=== PATIENT | male | born 1935 | race Caucasian/White ===

== ENCOUNTER 2017-08-04 05:23 | Inpatient (IN) | payer MEDICARE, SELFPAY ==
[2017-08-04] VITALS (31 sets, daily range): BP systolic 115–158; BP diastolic 45–109; PULSE 38–178; RESP 13–32; TEMP 36.6–36.9; O2SAT 92–98; BMI 30.7; BMI 31.1; BMI 31.2
--- NOTE | 2017-08-04 05:29 | NURSING ---
RN CALLED FOR EKG, NO OLD EKG'S IN MUSE
--- NOTE | 2017-08-04 05:32 | RAD_ITS ---
STUDY: X-RAY CHEST REASON FOR EXAM: Male, 81 years old. Shortness of breath and dizziness TECHNIQUE: Single AP portable view of the chest. COMPARISON: None. FINDINGS: There are superimposed monitor leads. There is elevation of the left hemidiaphragm with compression of adjacent parenchyma, mild shift of trachea, heart and mediastinum to the right. Mild compression of the right basilar parenchyma. There is no demonstrated pleural abnormality. Normal size heart. Normal mediastinum and eloisa. Normal visualized pulmonary arteries. There is atherosclerotic calcification of the aortic arch with tortuosity. Obscured thoracic spine. Normal visualized ribs, clavicles, and shoulders. There is no demonstrated abnormality of the visualized soft tissue structures of the upper abdomen. RAD/Chest 1 View (Portable) IMPRESSION: Elevation of the right hemidiaphragm may cause shift to the right as outlined above. There is nonspecific compression of left greater than right basilar parenchyma. Due to lack of comparison, follow-up examination or comparison with films performed elsewhere recommended. Electronically Signed: Madelin Carey MD at 6:09 EDT , Service support ,
--- NOTE | 2017-08-04 05:32 | EKG12_ITS ---
Test Reason : SOB Blood Pressure : / mmHG Vent. Rate : 163 BPM Atrial Rate : 067 BPM P-R Int : 000 ms QRS Dur : 074 ms QT Int : 288 ms P-R-T Axes : 000 023 115 degrees QTc Int : 474 ms Atrial fibrillation Nonspecific ST and T wave abnormality Abnormal ECG Confirmed by KATRINA SOLOMON ([id number]), make up editor DEVAN CAMARILLO ([id number]) on 08/06/2017 2:35:11 PM Referred By: KAVITA Confirmed By:KATRINA SOLOMON
[2017-08-04] MEDS: 0.9% Normal Saline 1,000 ML 150 ML IV (05:39)
[2017-08-04] MEDS: dilTIAZem 25 MG/5 ML Vial 20 MG IV BOLUS ×2 (05:39→06:53)
[2017-08-04] MEDS: Aspirin 81 MG TAB.CHEW 324 MG PO (05:39)
--- NOTE | 2017-08-04 05:39 | ED.DCSUM_ITS ---
- ER Visit Summary Date of Service: 08/04/17 Chief Complaint: Heart racing History of Present Illness: The patient is a 81 M with no known medical history who presents for sudden onset of heart racing. Patient states he woke from sleep feeling like his heart was racing and he was on his head. He has associated chest discomfort and shortness of breath. He states he has had a chronic cough for months but denies any other symptoms. He has not seen a doctor in many years and has no diagnosed medical history. He is not on any medications currently. He denies alcohol and tobacco use. Physical Examination: Vital signs: afebrile, hypertensive, no hypoxia on room air General: well nourished, well developed, in no distress Skin: warm, dry, no rash, no pallor HEENT: normocephalic and atraumatic; PERRL, EOMI, moist mucous membranes Cardiovascular: Tachycardic irregularly irregular rhythm without murmurs, no peripheral edema, 2+ pulses all distal extremities Respiratory: No increased work of breathing, lungs are clear to auscultation bilaterally, no rales, rhonchi or wheezing Abdominal: Abdomen is soft, nontender with normoactive bowel sounds, no guarding or rebound, no masses MSK: Moves all extremities, no deformities, normal strength Neuro: Awake and alert, oriented ?4. No facial droop, sensation and motor function intact and symmetric Test Results: Abnormal Lab Results 08/04/17 08/04/17 08/04/17 05:27 05:27 05:27 WBC 7.0 RBC 4.79 Hgb 15.9 Hct 47.7 MCV 99.6 H MCH 33.2 H MCHC 33.3 RDW 13.2 RDW Differential 47.8 H Plt Count 229 MPV 9.5 Immature Gran % (Auto) 0.100 Neut % (Auto) 54.2 Lymph % (Auto) 32.6 [place] % (Auto) 10.3 H Eos % (Auto) 2.7 Baso % (Auto) 0.1 Absolute Neuts (auto) 3.8 Absolute Lymphs (auto) 2.27 Total Counted Not Reportable PT 12.5 INR 0.9 APTT 29.7 Sodium 141 Potassium 3.8 Chloride 106 Carbon Dioxide 28.0 Anion Gap 7 BUN 19 H Creatinine 1.25 Estim Creat Clear Calc 41.82 Est GFR (MDRD) Af Amer 71 Est GFR (MDRD) Non-Af 59 L BUN/Creatinine Ratio 15.2 Glucose 107 H Calcium 8.6 Troponin I < 0.02 TSH 7.80 H Emergency Department Course and Treatment: Patient presents in A. fib with RVR. EKG shows no ischemic changes. Given that patient is 81 years old and has not received any medical care in several years, it is unknown whether patient is acutely in A. fib with RVR from baseline normal sinus rhythm or whether he has had underlying atrial fibrillation, presenting today with RVR. Because of this, patient will not be cardioverted back into a sinus rhythm without cardiac evaluation first. He was given Cardizem for rate control, with good response after 1 bolus, and then followed by a Cardizem drip. Labs were performed to look for underlying cause of the acute A. fib with RVR. On the negative. No electrolyte derangements. TSH was elevated, with free T4 pending. Patient was discussed with Dr. Davis, who will consult on the patient. He was then discussed with Dr. Freitas for admission for further workup of new onset A. fib with RVR. Treatment Plan: [] Disposition: admit to PCU stepdown Impression: Atrial fibrillation with RVR This note was generated with [employer] dictation software. It may contain incorrect words, spelling, and punctuation that were not noted in review of the chart prior to signing ED Disposition - Plan for ED Patient: Chief Complaint: Chest Pain Referrals: Care Physician,No Primary [Primary Care Provider] -
[2017-08-04 05:46] LABS: International Normalized Ratio 0.9; Prothrombin Time (Protime)PT. 12.5 SECONDS (11.7-14.9)
[2017-08-04 05:47] LABS: Partial Thromboplast Time 29.7 Seconds (24.1-36.2)
[2017-08-04 05:57] LABS: Absolute Lymphocyte Count 2.27 X10^3/ul (0.83-4.51); Absolute Neutrophil Count 3.8 X10^3/uL (2.0-7.7); Basophil# 0.01 X10^3/uL; Basophil% 0.1 % (0-1); Eosinophil# 0.19 X10^3/uL; Eosinophils% 2.7 % (0-5); Hematocrit 47.7 % (40-54); Hemoglobin 15.9 g/dl (13.0-16.5); Lymphocyte # 2.27 X10^3/ul (4.0); Lymphocyte % 32.6 % (19-41); Mean Corp Hgb Conc 33.3 g/gl (32-36); Mean Corpuscular Hgb 33.2 pg (27.0-32.0); Mean Corpuscular Volume 99.6 fL (80-94); Mean Platelet Vol. 9.5 fl (6.2-12.0); Monocyte# 0.72 X10^3/uL; Monocyte% 10.3 % (0-10); Neutrophil # 3.76 X10^3/uL (2.7-7.7); Neutrophil % 54.2 % (47-70); Platelet Count 229 K/mm3 (150-450); RBC Distribution Width CV 13.2 % (11.6-14.6); RBC Distribution Width SD 47.8 fl (35.1-43.9); Red Blood Count 4.79 M/mm3 (4.6-6.2)
[2017-08-04 05:59] LABS: POSITIVE COUNT NO; POSITIVE DIFFERENTIAL NO; POSITIVE MORPHOLOGY NO
[2017-08-04 06:02] LABS: Anion Gap 7 (5-15); BUN 19 mg/dL (7-18); BUN/Creat Ratio 15.2 RATIO (10-20); Calcium,Total 8.6 mg/dL (8.5-10.1); Chloride 106 mmol/L (98-107); Creatinine, Serum 1.25 mg/dL (0.70-1.30); EST Glomerular Filtration Rate 59 mL/min (>60); Est Glom Filt Rate - Afr Amer 71 mL/min (>60); Estimated Creatinine Clearance 41.82 ml/min; Glucose 107 mg/dL (74-106); Potassium 3.8 mmol/L (3.5-5.1); Sodium Level 141 mmol/L (136-145)
--- NOTE | 2017-08-04 06:32 | PCM.HP.STD ---
Problem List (1) Atrial fibrillation with RVR Status: Acute History of Present Illness Date of Admission: 08/04/17 Chief Complaint: heart racing The patient is a 81 year old male patient who has not seen a physician in quite awhile presents to the ER after waking up at 2:00 with his heart racing. He felt palpitations and he was abnormally fatigued. He denies chest pain to me currently but does feel tired. EKG shows atrial fibrillation with RVR initial rate was 170s. After Cardizem bolus his heart rate was around 120. A Cardizem drip was started and patient admitted for further cardiac workup. Past Medical History Allergies No Known Allergies Allergy (Verified 08/04/17 05:25) Home Medications: Ambulatory Orders Medication Instructions Recorded NK [NK] 08/04/17 Surgical History: no surgical history Smoking Status: Never smoker - *Family History Maternal History Items: No pertinent history Review of Systems Constitutional: Reports: Weakness. Denies: Chills, Fever, Weight Change HEENT: Denies: Head Aches, Sinus Congestion, Sinus Drainage Cardiovascular: Reports: Palpitations. Denies: Chest Pain Respiratory: Reports: Shortness of breath upon exertion. Denies: Cough, Shortness of breath at rest, Sputum production Gastrointestinal: Denies: Abdominal Pain, Nausea, Vomiting Genitourinary: Denies: Dysuria Musculoskeletal: Denies: Joint Pain, Joint Tenderness Skin: Denies: Rash, Wounds Neurological: Denies: Numbness, Tingling, Focal weakness Psychiatric: Denies: Anxiety, Depression, Homicidal Ideations, Suicidal Ideations Hematologic/ Lymphatic: Denies: Easy Bruising, Easy Bleeding VTE Information - Inpt Only VTE Present on Admission: No VTE Mechan Device Prophylaxis: None VTE Pharm Prophylaxis ordered?: Yes Patient Problems: Active and Suspected Problems Fatigue due to excessive exertion (Acute) Atrial fibrillation with RVR (Acute) - Physical Exam General: Alert, Oriented x3, Cooperative HEENT: Atraumatic, Normocephalic Neck: Supple Lungs: Clear to auscultation, Normal air movement Cardiovascular: Normal S1, Normal S2, No murmurs, Irregular Rate, Tachycardic Abdomen: Bowel Sounds Present, Soft, Non Tender Extremities: No edema Skin: No rashes Musculoskeletal: No Tenderness to Palpation of Joints or Extremities Neurological: Neuro grossly intact Psych/Mental Status: Normal Affect, Appropriate Vital Signs Temp Pulse Resp BP Pulse Ox 97.8 F 117 H 22 H 129/72 H 97 08/04/17 05:24 08/04/17 06:20 08/04/17 06:20 08/04/17 06:20 08/04/17 06:20 Oxygen Flow Rate (L/min) 2 Oxygen Delivery Method Nasal Cannula Weight: 190 lb Body Mass Index (BMI) 30.7 Laboratory Tests Past 24 Hrs 08/04/17 08/04/17 08/04/17 05:27 05:27 05:27 WBC 7.0 RBC 4.79 Hgb 15.9 Hct 47.7 MCV 99.6 H MCH 33.2 H MCHC 33.3 RDW 13.2 RDW Differential 47.8 H Plt Count 229 MPV 9.5 Immature Gran % (Auto) 0.100 Neut % (Auto) 54.2 Lymph % (Auto) 32.6 [place] % (Auto) 10.3 H Eos % (Auto) 2.7 Baso % (Auto) 0.1 Absolute Neuts (auto) 3.8 Absolute Lymphs (auto) 2.27 Total Counted Not Reportable PT 12.5 INR 0.9 APTT 29.7 Sodium 141 Potassium 3.8 Chloride 106 Carbon Dioxide 28.0 Anion Gap 7 BUN 19 H Creatinine 1.25 Estim Creat Clear Calc 41.82 Est GFR (MDRD) Af Amer 71 Est GFR (MDRD) Non-Af 59 L BUN/Creatinine Ratio 15.2 Glucose 107 H Calcium 8.6 Troponin I < 0.02 TSH 7.80 H Free T4 08/04/17 05:27 WBC RBC Hgb Hct MCV MCH MCHC RDW RDW Differential Plt Count MPV Immature Gran % (Auto) Neut % (Auto) Lymph % (Auto) [place] % (Auto) Eos % (Auto) Baso % (Auto) Absolute Neuts (auto) Absolute Lymphs (auto) Total Counted PT INR APTT Sodium Potassium Chloride Carbon Dioxide Anion Gap BUN Creatinine Estim Creat Clear Calc Est GFR (MDRD) Af Amer Est GFR (MDRD) Non-Af BUN/Creatinine Ratio Glucose Calcium Troponin I TSH Free T4 Pending Assessment/Plan Active and Suspected Problems Fatigue due to excessive exertion (Acute) Atrial fibrillation with RVR (Acute) Admit to PCU - consult Dr. Susan lal - NPO for now - Lovenox 1mg / kg sc q 12hrs until other form of anticoagulation determined - to address hypothyroid state perhaps low dose synthroid replacement or repeat labs in a few weeks Code Visit Inpatient E&M: 41917 Init Hosp L3
[2017-08-04 06:51] LABS: T4 Free Direct 0.91 ng/dL (0.76-1.46)
--- NOTE | 2017-08-04 06:56 | ED.RN ---
DR. MONTANO IN TO SEE PATIENT VERBAL ORDER GIVEN TO INCREASE CARDIZEM DOES TO 10 MG AND GIVE 20 MG BOLUS AT THIS TIME
--- NOTE | 2017-08-04 07:19 | EKG12_ITS ---
Test Reason : REPEAT EKG Blood Pressure : / mmHG Vent. Rate : 107 BPM Atrial Rate : 085 BPM P-R Int : 000 ms QRS Dur : 076 ms QT Int : 326 ms P-R-T Axes : 000 020 046 degrees QTc Int : 435 ms Atrial fibrillation with premature ventricular or aberrantly conducted complexes Abnormal ECG Confirmed by KATRINA SOLOMON ([id number]), news videotape editor DEVAN CAMARILLO ([id number]) on 08/06/2017 2:35:25 PM Referred By: KAVITA Confirmed By:KATRINA SOLOMON
--- NOTE | 2017-08-04 07:44 | PCM.CONS.C ---
Reason for Consult Date of Consultation: 08/04/17 Reason for Consultation: Atrial fibrillation. History of Present Illness: The patient is a 81 year old M with no previous cardiac history who has been fairly active and said that he woke at about 2 AM complaining of palpitations and shortness of breath. He presented to the emergency room was noted to be in atrial for ablation with rapid ventricular response rate he was administered intravenous Cardizem with some slowing down of his heart rate and I was called for further evaluation and management. He denies any chest pain he has had some shortness of breath is not had any palpitations until last night no pedal edema no paroxysmal nocturnal dyspnea. He is on no medications and has not seen a physician in years. He however remains very active and walks all around [place]. At this particular time he remained stable. [] Past Medical History Allergies/Adverse Reactions: Allergies No Known Allergies Allergy (Verified 08/04/17 05:25) Home Medications: Ambulatory Orders Medication Instructions Recorded NK [NK] 08/04/17 Surgical History: no surgical history - *Family History Maternal History Items: No pertinent history Smoking Status: Never smoker Alcohol: None Drugs: None Review of Systems - Review of Systems General: Denies: Fever, Night Sweats, Fatigue Cardiovascular: Reports: Shortness of Breath with Exertion, Palpitations. Denies: Chest Discomfort, Shortness of Breath, Orthopnea, PND, Peripheral Edema, Lightheadedness, Dizziness, Near Syncope, Syncope Respiratory: Denies: Cough, Sputum Production, Hemoptysis Gastrointestinal: Denies: Hematemesis, Hematochezia, Melena Genitourinary: Denies: Dysuria, Hematuria Skin: Denies: Rash Subjectve: Pleasant gentleman in no apparent distress. Objective: Vital Signs Temp Pulse Resp BP Pulse Ox 98.0 F 87 18 140/69 H 98 08/04/17 07:30 08/04/17 07:30 08/04/17 07:30 08/04/17 07:30 08/04/17 07:30 Oxygen Flow Rate (L/min) 2 Oxygen Delivery Method Nasal Cannula Weight: 193 lb 1.999 oz Body Mass Index (BMI) 31.1 General: Awake, Alert, Oriented x 3 HEENT: PERRL, EOMI, Sclera Non Icteric Neck: Supple, Good ROM, No Lymph Node Enlargement Lungs: Clear to auscultation Cardiovascular: Irregular Rhythm, Normal S1, Normal S2, No Murmurs, No Rubs, No Gallops Vascular: No Carotid Bruits, Normal Femoral Pulses, Normal Radial Pulses, Normal Dorsalis Pedal Pulse, Normal Posterior Tibial Pulses Abdomen: Bowel Sounds Present, Soft, Non Tender, No HSM, No Organomegaly Extremities: No Cyanosis, No Clubbing, No edema Neurological: No Focal Motor or Sensory Deficit Rhythm: EKG: Atrial fibrillation with rapid ventricular response rate of 140 bpm ECHO: Pending Assessment/Plan 1. Atrial fibrillation Patient presents with recent onset atrial fibrillation with rapid ventricular response rate. The etiology is unclear he however does have a history of hypertension though it is untreated. My recommendation at this time will be to slow his ventricular response rate with intravenous Cardizem and subsequently oral metoprolol obtain an echocardiogram to assess his left ventricular function and obtain serial cardiac enzymes. Depending on the results of the above as well as his response to therapy further recommendations will be made. 2. Hypertension His blood pressure appears to be under suboptimal control. With the addition of the beta-chantell hopefully this should improve his symptoms. Thank you for allowing me to participate in the care of your patient. Please don't hesitate to call if any issues arise
[2017-08-04] MEDS: Metoprolol Tartrate 50 MG Tablet PO ×2 (09:44→23:00)
--- NOTE | 2017-08-04 11:36 | CASEMGMT ---
Addendum entered by Izabella Amaya 08/04/17 11:39: Pt provided with list of local PCP's at this time. Pt voices gratitude. Brandi DERAS CM Original Note: Face to Face with patient for initial transition planning/care coordination assessment. BRAEDEN BRADLEY introduced self and role at [facility], pt voices understanding and consents to assessment at this time. Pt is lying in bed in no distress at this time. Pt is A/O x4 at this time and answers all questions appropriately at this time. Care providers, pharmacy, and demographics verified. See attached link. Pt voices no further concerns/needs at this time. Advised pt to ask for CM if any further questions/concerns/needs arise, voices understanding. CM to follow for any further concerns/needs. PLAN: Home Brandi DERAS CM
--- NOTE | 2017-08-04 12:36 | PCM.PROGNOTE ---
<oPrsha Duckworth - Last Filed: 08/04/17 12:42> Patient Problems: Active and Suspected Problems Fatigue due to excessive exertion (Acute) Atrial fibrillation with RVR (Acute) Subjective: Patient seen and examined. Denies further palpitations. Denies chest pain, shortness of breath. Denies other complaints. - Physical Exam General: Alert, Oriented x3, Cooperative, No apparent distress HEENT: Atraumatic, PERRLA, EOMI, Normocephalic Neck: Supple, No JVD, Negative Carotid Bruits Lungs: Clear to auscultation, Normal air movement Cardiovascular: Normal S1, Normal S2, No murmurs, - - A. fib, rate controlled. Abdomen: Bowel Sounds Present, Soft, Non Tender, Non-Distended Extremities: No clubbing, No cyanosis, No edema, Capillary Refill Less than 3 Seconds Skin: No rashes, No breakdown Musculoskeletal: No Tenderness to Palpation of Joints or Extremities Neurological: Cranial nerves II-XII grossly intact, Neuro grossly intact Psych/Mental Status: Normal Affect, Appropriate Vital Signs Temp Pulse Resp BP Pulse Ox 98.0 F 60 26 H 126/68 H 97 08/04/17 11:30 08/04/17 11:30 08/04/17 11:30 08/04/17 11:30 08/04/17 11:30 Oxygen Flow Rate (L/min) 2 Oxygen Delivery Method Room Air Weight: 87.6 kg Body Mass Index (BMI) 31.1 Intake and Output for Last 24 Hours 08/02/17 08/03/17 08/04/17 23:59 23:59 23:59 Intake Total 600 / 600 Output Total 250 / 250 Balance 350 / 350 Laboratory Tests Past 24 Hrs 08/04/17 09:05 Troponin I < 0.02 Medical Necessity - Tobacco Use Smoking Status: Never smoker Assessment/Plan Active and Suspected Problems Fatigue due to excessive exertion (Acute) Atrial fibrillation with RVR (Acute) 1. New onset atrial fibrillation with RVR-remains in atrial fibrillation. Rate controlled. Cardiology consulted. Patient is on Cardizem drip and metoprolol 50 mg twice daily. Troponin negative ?2. Echocardiogram pending. Continue weight-based Lovenox. 2. Hypertension-stable, continue current regimen. 3. Hypothyroidism-TSH 7.8. Free T4 0.91. Recommend further management as outpatient. DVT prophylaxis-Lovenox subcu. This patient was seen by JANEY Callaway under the supervision of Dr. Castro. <Sherry Castro - Last Filed: 08/04/17 18:03> - Physical Exam Vital Signs Temp Pulse Resp BP Pulse Ox 98.5 F 38 L 20 H 132/72 H 94 08/04/17 15:09 08/04/17 15:56 08/04/17 15:09 08/04/17 15:09 08/04/17 15:09 Oxygen Flow Rate (L/min) 2 Oxygen Delivery Method Nasal Cannula Weight: 87.6 kg Body Mass Index (BMI) 31.1 Intake and Output for Last 24 Hours 08/02/17 08/03/17 08/04/17 23:59 23:59 23:59 Intake Total 940 / 940 Output Total 550 / 550 Balance 390 / 390 Laboratory Tests Past 24 Hrs 08/04/17 08/04/17 09:05 13:00 Troponin I < 0.02 0.03 Assessment/Plan Patient was seen and examined dependently of nurse practitioner Porsha Duckworth, I agree with her interval history, physical exam and assessment and plan as documented above. Patient denies any palpitations, dizziness or shortness of breath at the time of being examined. He is rate controlled on telemetry. Off Cardizem drip, on metoprolol, cardiology consulted, will await recommendations. 2D echo report is pending CHADS2 score of at least 2. Vitals reviewed, meds reviewed, labs reviewed. We will continue on metoprolol, Lovenox twice daily. Code Visit Inpatient E&M: [id number] [facility] Hosp L2
--- NOTE | 2017-08-04 16:15 | EKG12_ITS ---
Test Reason : Blood Pressure : / mmHG Vent. Rate : 056 BPM Atrial Rate : 056 BPM P-R Int : 158 ms QRS Dur : 084 ms QT Int : 438 ms P-R-T Axes : 052 027 063 degrees QTc Int : 422 ms Sinus bradycardia Otherwise normal ECG Confirmed by LORRAINE BARAKAT, ZAMZAM ([id number]), food expeditor DEVAN CAMARILLO ([id number]) on 08/07/2017 1:33:23 PM Referred By: ROBBIN Confirmed By:ZAMZAM PETERS MD
[2017-08-04] MEDS: Enoxaparin 100 MG/ML Syringe 90 MG SC (17:45)
[2017-08-05 03:00] VITALS: BP 108/62; PULSE 58; RESP 16; TEMP 36.9; O2SAT 99
[2017-08-05 03:04] VITALS: PULSE 61
[2017-08-05] MEDS: Enoxaparin 100 MG/ML Syringe 90 MG SC (05:44)
--- NOTE | 2017-08-05 05:55 | ECHOD_ITS ---
Reason For Study: AFIB Procedure This was a 2D Doppler, Color Flow transthoracic echocardiogram. Exam performed portable in patient room. Left Ventricle Normal LV size. Mild concentric left ventricular hypertrophy. The estimated ejection fraction is 47 %. Mild global left ventricular systolic dysfunction. Transmitral diastolic flow velocities suggest mild (stage 1) diastolic dysfunction (reversed pattern). There is mild global hypokinesis of the left ventricle. Right Ventricle Normal RV size. Normal systolic function. Atria Normal left atrium. Normal right atrium. Intact atrial septum. Mitral Valve Normal mitral valve. Mild (1+) eccentric mitral valve insufficiency. Tricuspid Valve Normal tricuspid valve. Mild (1+) tricuspid valve insufficiency. Pulmonary artery systolic pressure is 33 mmHg. Aortic Valve Trisinus/trileaflet aortic valve. Mild (1+) eccentric aortic valve insufficiency. Pulmonic Valve The pulmonic valve is not well visualized. Great Vessels Normal aortic root. The pulmonary artery is normal size. Normal inferior vena cava. Pericardium/Pleural No pericardial effusion. Medication Performed a rapid injection of agitated mix of 9 cc saline and 1cc air to assess for atrial septal defect. MMode/2D Measurements & Calculations LVIDd: 4.4 cm IVSd: 1.2 cm Ao root diam: 3.7 cm LVIDs: 3.2 cm LVPWd: 1.4 cm RVDd: 3.3 cm FS: 27.3 % LAV(MOD-bp): 64.4 ml EDV(MOD-sp4): 77.7 ml SV(MOD-sp4): 46.2 ml LAV(MOD-bp) Indexed: 32.7 ml/m2 ESV(MOD-sp4): 31.4 ml LAV(MOD-sp2): 73.8 ml EF(MOD-sp4): 59.5 % LAV(MOD-sp4): 44.4 ml LA A4 area: 17.0 cm2 RA A4 area: 14.5 cm2 Doppler Measurements & Calculations MV E max christopher: 65.0 cm/sec Lat Peak E' Christopher: 7.9 cm/sec Med Peak E' Christopher: 7.0 cm/sec MV A max christopher: 79.3 cm/sec E/E' lat: 8.2 E/E' med: 9.3 MV E/A: 0.82 Ao V2 max: 133.9 cm/sec AI max christopher: 354.1 cm/sec LV V1 max: 84.7 cm/sec Ao max P.2 mmHg AI max P.1 mmHg LV V1 max P.9 mmHg AI dec slope: 186.3 cm/sec2 AI P1/2t: 556.8 msec PA V2 max: 67.2 cm/sec TR max christopher: 265.6 cm/sec TR max P.2 mmHg Interpretation Summary Normal LV size. Mild concentric left ventricular hypertrophy. The estimated ejection fraction is 47 %. Mild global left ventricular systolic dysfunction. Transmitral diastolic flow velocities suggest mild (stage 1) diastolic dysfunction (reversed pattern). Ordering Physician: Jaya Freitas Referring Physician: JAMESON MONTANO Performed By: Rosa Hernandez RDCS
[2017-08-05 06:13] LABS: Absolute Lymphocyte Count 1.23 X10^3/ul (0.83-4.51); Absolute Neutrophil Count 3.4 X10^3/uL (2.0-7.7); Basophil# 0.01 X10^3/uL; Basophil% 0.2 % (0-1); Eosinophil# 0.16 X10^3/uL; Hematocrit 39.7 % (40-54); Hemoglobin 13.1 g/dl (13.0-16.5); Lymphocyte # 1.23 X10^3/ul (4.0); Mean Corpuscular Hgb 32.8 pg (27.0-32.0); Mean Corpuscular Volume 99.3 fL (80-94); Mean Platelet Vol. 9.4 fl (6.2-12.0); Monocyte# 0.57 X10^3/uL; Monocyte% 10.7 % (0-10); Neutrophil # 3.36 X10^3/uL (2.7-7.7); Neutrophil % 62.9 % (47-70); Platelet Count 177 K/mm3 (150-450); RBC Distribution Width CV 13.3 % (11.6-14.6); RBC Distribution Width SD 48.4 fl (35.1-43.9); White Blood Count 5.3 K/mm3 (4.4-11.0)
[2017-08-05 06:27] LABS: POSITIVE COUNT NO; POSITIVE DIFFERENTIAL NO; POSITIVE MORPHOLOGY NO
[2017-08-05 06:31] LABS: ALB/GLOB Ratio 1.1 RATIO (0.9-2.4); AST(SGOT) 15 U/L (15-37); Alanine Aminotransfer ALT/SGPT 15 U/L (16-61); Albumin, Serum 3.1 g/dL (3.2-5.0); Alkaline Phosphatase 54 U/L (45-117); Anion Gap 7 (5-15); BUN 21 mg/dL (7-18); BUN/Creat Ratio 18.8 RATIO (10-20); Calcium,Total 7.8 mg/dL (8.5-10.1); Chloride 110 mmol/L (98-107); Cholesterol 166 mg/dL (200); Creatinine, Serum 1.12 mg/dL (0.70-1.30); EST Glomerular Filtration Rate 67 mL/min (>60); Est Glom Filt Rate - Afr Amer 81 mL/min (>60); Estimated Creatinine Clearance 46.68 ml/min; Globulin 2.9 g/dL (2.2-4.2); Glucose 77 mg/dL (74-106); High Density Lipoprotein 32 mg/dL; Potassium 4.3 mmol/L (3.5-5.1); Sodium Level 144 mmol/L (136-145); Triglycerides 157 mg/dL; Very Low Density Lipoprotein 31 mg/dL (5-40)
[2017-08-05 06:54] VITALS: PULSE 56
--- NOTE | 2017-08-05 07:29 | PN.CARD_ITS ---
Subjectve: The patient was seen and evaluated and appears to be doing well. Has no complaints. He has converted to sinus rhythm and feels better. Objective: Vital Signs Temp Pulse Resp BP Pulse Ox 98.5 F 56 L 16 108/62 99 08/05/17 03:00 08/05/17 06:54 08/05/17 03:00 08/05/17 03:00 08/05/17 03:00 Oxygen Flow Rate (L/min) 2 Oxygen Delivery Method Room Air Weight: 193 lb 1.999 oz Body Mass Index (BMI) 31.1 Intake and Output for Last 24 Hours 08/03/17 08/04/17 08/05/17 23:59 23:59 23:59 Intake Total 940 / 940 Output Total 550 / 550 Balance 390 / 390 General: Awake, Alert, Oriented x 3 HEENT: PERRL, EOMI, Sclera Non Icteric Neck: Supple, Good ROM, No Lymph Node Enlargement Lungs: Clear to auscultation Cardiovascular: Regular Rhythm, Normal S1, Normal S2, No Murmurs, No Rubs, No Gallops Vascular: No Carotid Bruits, Normal Femoral Pulses, Normal Radial Pulses, Normal Dorsalis Pedal Pulse, Normal Posterior Tibial Pulses Abdomen: Bowel Sounds Present, Soft, Non Tender, No HSM, No Organomegaly Extremities: No Cyanosis, No Clubbing, No edema Neurological: No Focal Motor or Sensory Deficit 08/04/17 09:05: Troponin I < 0.02 08/04/17 13:00: Troponin I 0.03 08/04/17 19:33: Troponin I 0.03 08/05/17 05:35: Sodium 144, Potassium 4.3, Chloride 110 H, Carbon Dioxide 27.0, Anion Gap 7, BUN 21 H, Creatinine 1.12, Est GFR (MDRD) Af Amer 81, Est GFR (MDRD ) Non-Af 67, BUN/Creatinine Ratio 18.8, Glucose 77, Calcium 7.8 L, Total Bilirubin 0.50, Triglycerides 157, Cholesterol 166, LDL Cholesterol 103, VLDL Cholesterol 31, HDL Cholesterol 32 L 08/05/17 05:35: WBC 5.3, RBC 4.00 L, Hgb 13.1, Hct 39.7 L, MCV 99.3 H, MCH 32.8 H, MCHC 33.0, RDW 13.3, RDW Differential 48.4 H, Plt Count 177, MPV 9.4, Immature Gran % (Auto) 0.200, Neut % (Auto) 62.9, Lymph % (Auto) 23.0, [place] % ( Auto) 10.7 H, Eos % (Auto) 3.0, Baso % (Auto) 0.2, Absolute Neuts (auto) 3.4, Total Counted Not Reportable Rhythm: EKG: ECHO: Stress Test: Cardiac Cath: PCI: CT Surgery: Holter monitor: EPS: PPM: CXR: Chest CT Scan: Medical Necessity - Tobacco Use Smoking Status: Never smoker Assessment/Plan 1. Atrial fibrillation Patient presents with recent onset atrial fibrillation with rapid ventricular response rate. The etiology is unclear he however does have a history of hypertension though it is untreated. He was treated with intravenous Cardizem and beta-chantell and has since converted back to sinus rhythm. His echocardiogram which is ongoing demonstrates overall preserved left ventricular systolic function with mild aortic regurgitation. Formal reading pending. At this time my recommendation would be for him to continue the beta-chantell with metoprolol 50 mg twice a day as well as anticoagulation with Eliquis 5 mg twice a day and be subsequently discharged and followed by up as an outpatient. 2. Hypertension His blood pressure appears to be under better control. With the addition of the beta-chantell hopefully this should improve his symptoms. Thank you for allowing me to participate in the care of your patient. Please don't hesitate to call if any issues arise
[2017-08-05 08:29] LABS: BNP,B-Type NATRIURETIC PEPTIDE 129.5 pg/mL (0-100)
[2017-08-05 09:00] VITALS: BP 124/66; PULSE 61; RESP 18; TEMP 36.8; O2SAT 95
[2017-08-05 09:01] VITALS: PULSE 61
[2017-08-05] MEDS: Metoprolol Tartrate 50 MG Tablet PO (09:01)
[2017-08-05] MEDS: APIXABAN 5 MG TABLET PO (09:01)
[2017-08-05 09:11] VITALS: O2SAT 95
--- NOTE | 2017-08-05 11:07 | CASEMGMT ---
Pt states that he does not think that he has prescription coverage. Call to [facility] and July,, states that pt has no cards on file and she ran his name in the system for any other coverage and she states that nothing comes up. Marian LITTLE aware. Toois to be e-scribed to [facility] retail pharm for one time assist and then pt to be provided with prescription assist info by Clarence GLEZ. Pt to be updated on all. Brandi DERAS CM
--- NOTE | 2017-08-05 11:21 | PCM.DC ---
- Discharge Diagnoses Current Active Problems: Current Active and Chronic Problems Fatigue due to excessive exertion (Acute) Atrial fibrillation with RVR (Acute) You will use the following diet at home:: Cardiac Discharge Activity: Return to Normal Activity Call your doctor if you observe: Shortness of breath, Dizziness, Fainting spells, Chest pain, Increased palpitations (irregular heartbeat), Calf discomfort Allergies/Adverse Reactions: Allergies No Known Allergies Allergy (Verified 08/04/17 05:25) Medications to take at Discharge Apixaban [Eliquis] 5 mg PO BID #60 tab 08/05/17 Metoprolol Tartrate [Lopressor (beta chantell)] 50 mg PO BID #60 tab 08/05/17 The following prescriptions were given: Apixaban [Eliquis] 5 mg PO BID #60 tab Metoprolol Tartrate [Lopressor (beta chantell)] 50 mg PO BID #60 tab Primary Care Physician: Care Physician,No Primary [Primary Care Provider] - Please follow up with your Primary Care Physician in: 1 Week Please Follow Up With: Jameson Davis MD When: 1-2 Weeks Please Follow Up With: Wally Cadena MD - Reinforcer When: 1 Week or as needed Proposed Discharge Date: 08/05/17
--- NOTE | 2017-08-05 11:25 | DCINST_ITS ---
- Discharge Diagnoses Current Active Problems: Current Active and Chronic Problems Fatigue due to excessive exertion (Acute) Atrial fibrillation with RVR (Acute) You will use the following diet at home:: Cardiac Discharge Activity: Return to Normal Activity Call your doctor if you observe: Shortness of breath, Dizziness, Fainting spells , Chest pain, Increased palpitations (irregular heartbeat), Calf discomfort Allergies/Adverse Reactions: Allergies No Known Allergies Allergy (Verified 08/04/17 05:25) Medications to take at Discharge Apixaban [Eliquis] 5 mg PO BID #60 tab 08/05/17 Metoprolol Tartrate [Lopressor (beta chantell)] 50 mg PO BID #60 tab 08/05/17 The following prescriptions were given: Apixaban [Eliquis] 5 mg PO BID #60 tab Metoprolol Tartrate [Lopressor (beta chantell)] 50 mg PO BID #60 tab Primary Care Physician: Care Physician,No Primary [Primary Care Provider] - Please follow up with your Primary Care Physician in: 1 Week Please Follow Up With: Jameson Davis MD When: 1-2 Weeks Please Follow Up With: Wally Cadena MD - Dryland Farmer When: 1 Week or as needed Proposed Discharge Date: 08/05/17
--- NOTE | 2017-08-05 11:27 | PCM.DC.SUM ---
Discharge Date and Diagnosis Date of Admission: 08/04/17 Date of Discharge: 08/05/17 - Primary Discharge Diagnosis Active and Suspected Problems 1. Acute atrial fibrillation with RVR - Secondary Discharge Diagnosis Hypertension Hospital Course and Treatment Imaging Results: Diagnostic Data Chest X-Ray 08/04/17 05:32 IMPRESSION: Elevation of the right hemidiaphragm may cause shift to the right as outlined above. There is nonspecific compression of left greater than right basilar parenchyma. Due to lack of comparison, follow-up examination or comparison with films performed elsewhere recommended. Electronically Signed: Madelin Carey MD at 6:09 EDT , Service support , Dr. Davis- Cardiology Operations: None Procedures: 2-D Echocardiogram Summary of Care Provided: The patient is a 81 year old M admitted 08/04/17 due to heart racing. He was found to be in atrial fibrillation with RVR. No previous diagnosis. No prior medical history. 1. New onset atrial fibrillation with RVR-previously on Cardizem drip and converted to sinus rhythm. Dr. Davis consulted. Troponin negative ?4. Patient will continue metoprolol 50 mg twice daily and Eliquis 5 mg twice daily. Echocardiogram showed an ejection fraction of 47%, mild global left ventricular systolic dysfunction, stage I diastolic dysfunction. 2. Hypertension-stable, continue current regimen. 3. Hypothyroidism-TSH 7.8. Free T4 0.91. Recommend further management as outpatient. General: Alert, Oriented x3, Cooperative, No apparent distress HEENT: Atraumatic, PERRLA, EOMI, Normocephalic Neck: Supple, No JVD, Negative Carotid Bruits Lungs: Clear to auscultation, Normal air movement Cardiovascular: Normal rate, normal rhythm normal S1, Normal S2, No murmurs Abdomen: Bowel Sounds Present, Soft, Non Tender, Non-Distended Extremities: No clubbing, No cyanosis, No edema, Capillary Refill Less than 3 Seconds Skin: No rashes, No breakdown Musculoskeletal: No Tenderness to Palpation of Joints or Extremities Neurological: Cranial nerves II-XII grossly intact, Neuro grossly intact Psych/Mental Status: Normal Affect, Appropriate Patient seen and examined prior to discharge. Physical assessment as noted above. Patient stable for discharge home with further follow-up with primary care physician and cardiology in 1-2 weeks. This patient was seen by JANEY Callaway under the supervision of Dr. Saleh. Discharge Activity: Return to Normal Activity Call your doctor if you observe: Shortness of breath, Dizziness, Fainting spells, Chest pain, Increased palpitations (irregular heartbeat), Calf discomfort Home Medications: Medications to take at Discharge Apixaban [Eliquis] 5 mg PO BID #60 tab 08/05/17 Metoprolol Tartrate [Lopressor (beta chantell)] 50 mg PO BID #60 tab 08/05/17 Following Prescrptions Were Given to Patient: Apixaban [Eliquis] 5 mg PO BID #60 tab Metoprolol Tartrate [Lopressor (beta chantell)] 50 mg PO BID #60 tab Primary Care Physician: Care Physician,No Primary [Primary Care Provider] - Please follow up with your Primary Care Physician in: 1 Week Please Follow Up With: Jameson Davis MD When: 1-2 Weeks Please Follow Up With: Wally Cadena MD - Supervisor Film Processing When: 1 Week or as needed Medical Necessity - Tobacco Use Smoking Status: Never smoker Meaningful Use Info Meaningful Use Diagnoses (Choose all that apply): None applicable
--- NOTE | 2017-08-05 11:34 | DS.PCM_ITS ---
Discharge Date and Diagnosis Date of Admission: 08/04/17 Date of Discharge: 08/05/17 - Primary Discharge Diagnosis Active and Suspected Problems 1. Acute atrial fibrillation with RVR - Secondary Discharge Diagnosis Hypertension Hospital Course and Treatment Imaging Results: Diagnostic Data Chest X-Ray 08/04/17 05:32 IMPRESSION: Elevation of the right hemidiaphragm may cause shift to the right as outlined above. There is nonspecific compression of left greater than right basilar parenchyma. Due to lack of comparison, follow-up examination or comparison with films performed elsewhere recommended. Electronically Signed: Madelin Carey MD at 6:09 EDT , Service support , Dr. Davis- Cardiology Operations: None Procedures: 2-D Echocardiogram Summary of Care Provided: The patient is a 81 year old M admitted 08/04/17 due to heart racing. He was found to be in atrial fibrillation with RVR. No previous diagnosis. No prior medical history. 1. New onset atrial fibrillation with RVR-previously on Cardizem drip and converted to sinus rhythm. Dr. Davis consulted. Troponin negative ?4. Patient will continue metoprolol 50 mg twice daily and Eliquis 5 mg twice daily. Echocardiogram showed an ejection fraction of 47%, mild global left ventricular systolic dysfunction, stage I diastolic dysfunction. 2. Hypertension-stable, continue current regimen. 3. Hypothyroidism-TSH 7.8. Free T4 0.91. Recommend further management as outpatient. General: Alert, Oriented x3, Cooperative, No apparent distress HEENT: Atraumatic, PERRLA, EOMI, Normocephalic Neck: Supple, No JVD, Negative Carotid Bruits Lungs: Clear to auscultation, Normal air movement Cardiovascular: Normal rate, normal rhythm normal S1, Normal S2, No murmurs Abdomen: Bowel Sounds Present, Soft, Non Tender, Non-Distended Extremities: No clubbing, No cyanosis, No edema, Capillary Refill Less than 3 Seconds Skin: No rashes, No breakdown Musculoskeletal: No Tenderness to Palpation of Joints or Extremities Neurological: Cranial nerves II-XII grossly intact, Neuro grossly intact Psych/Mental Status: Normal Affect, Appropriate Patient seen and examined prior to discharge. Physical assessment as noted above. Patient stable for discharge home with further follow-up with primary care physician and cardiology in 1-2 weeks. This patient was seen by JANEY Callaway under the supervision of Dr. Saleh. Discharge Activity: Return to Normal Activity Call your doctor if you observe: Shortness of breath, Dizziness, Fainting spells , Chest pain, Increased palpitations (irregular heartbeat), Calf discomfort Home Medications: Medications to take at Discharge Apixaban [Eliquis] 5 mg PO BID #60 tab 08/05/17 Metoprolol Tartrate [Lopressor (beta chantell)] 50 mg PO BID #60 tab 08/05/17 Following Prescrptions Were Given to Patient: Apixaban [Eliquis] 5 mg PO BID #60 tab Metoprolol Tartrate [Lopressor (beta chantell)] 50 mg PO BID #60 tab Primary Care Physician: Care Physician,No Primary [Primary Care Provider] - Please follow up with your Primary Care Physician in: 1 Week Please Follow Up With: Jameson Davis MD When: 1-2 Weeks Please Follow Up With: Wally Cadena MD - Test Case Developer When: 1 Week or as needed Medical Necessity - Tobacco Use Smoking Status: Never smoker Meaningful Use Info Meaningful Use Diagnoses (Choose all that apply): None applicable
--- NOTE | 2017-08-05 11:43 | NURSING ---
all patient care, documentation, med administration by Freddy Doyle, student nurse, done under the supervision of this RN.
== END 2017-08-05 12:15 | disposition home or self-care (01) | DRG 310 ==
LOC: ED 05:52 → PCU 06:52
PROVIDERS: Internal Medicine; Admitting Provider Family Medicine; Emergency Provider Emergency Medicine; Visit Provider Internal Medicine
DX: I48.91 Unspecified atrial fibrillation (principal); E03.9 Hypothyroidism, unspecified; I10 Essential (primary) hypertension; I42.9 Cardiomyopathy, unspecified; I51.7 Cardiomegaly; I51.89 Other ill-defined heart diseases
CPT/HCPCS: 36415; 71045; 80048; 80053; 80061; 83880; 84439; 84443; 84484; 85025; 85610; 85730; 93005; 93306; 99285; J7030; J7050; A4216

== ENCOUNTER → 2018-10-25 | Outpatient (CLI) | payer MEDICARE, SELFPAY ==
[2018-10-15 12:35] VITALS: BMI 31.6
--- NOTE | 2018-10-25 13:59 | ECHOCS_ITS ---
Reason For Study: Afib/Flutter Procedure This was a 2D Doppler, Color Flow transthoracic echocardiogram. The study was technically difficult. Contrast injection was performed. Exam performed in department. Left Ventricle Normal LV size. Moderate concentric left ventricular hypertrophy. Left ventricular systolic function is normal. The estimated ejection fraction is 65 %. Stage 1 diastolic dysfunction. No regional wall motion abnormalities noted. Right Ventricle Normal RV size. Normal systolic function. Atria Normal left atrium. Normal right atrium. Tricuspid Valve Normal tricuspid valve. Aortic Valve The aortic valve is not well visualized. Mild (1+) eccentric aortic valve insufficiency. Pulmonic Valve Normal pulmonic valve. Great Vessels Normal aortic root. The pulmonary artery is normal size. Normal inferior vena cava. Pericardium/Pleural No pericardial effusion. Medication 22 gauge I.V. with prn adaptor inserted into right arm. Diluted definity 3ml given slow IV push to enhance endocardial definition. MMode/2D Measurements & Calculations LVIDd: 4.9 cm IVSd: 1.6 cm Ao root diam: 3.9 cm LVIDs: 3.5 cm LVPWd: 1.4 cm LA dimension: 3.6 cm FS: 29.2 % LAV(MOD-sp4): 41.6 ml LA A4 area: 15.7 cm2 RA A4 area: 13.4 cm2 Time Measurements MV dec time: 0.33 sec Doppler Measurements & Calculations MV E max christopher: 52.5 cm/sec Lat Peak E' Christopher: 5.8 cm/sec Med Peak E' Christopher: 7.4 cm/sec MV A max christopher: 72.9 cm/sec E/E' lat: 9.0 E/E' med: 7.1 MV E/A: 0.72 Ao V2 max: 124.6 cm/sec AI max christopher: 396.3 cm/sec LV V1 max: 75.6 cm/sec Ao max P.2 mmHg AI max P.8 mmHg LV V1 max P.3 mmHg AI dec slope: 225.6 cm/sec2 AI P1/2t: 514.4 msec PA V2 max: 56.6 cm/sec Interpretation Summary Normal LV size. Left ventricular systolic function is normal. The estimated ejection fraction is 65 %. Moderate concentric left ventricular hypertrophy. Stage 1 diastolic dysfunction. Contrast injection was performed. Ordering Physician: Jameson Davis Referring Physician: Jameson Davis Performed By: Americo Blake RCS
== END | disposition home or self-care (01) ==
LOC: CVS 13:58
PROVIDERS: Referring Provider Internal Medicine Cardiovascular Disease; Visit Provider Internal Medicine Cardiovascular Disease
DX: R00.2 Palpitations (principal)
CPT/HCPCS: 93306; Q9957; A4216; C8929

== ENCOUNTER → 2021-04-16 14:46 | Outpatient (CLI) | payer MEDICARE, SELFPAY ==
--- NOTE | 2021-04-16 15:00 | RAD_ITS ---
STUDY: X-RAY CHEST REASON FOR EXAM: Male, 85 years old. SHORTNESS OF BREATH TECHNIQUE: PA and lateral views of the chest. COMPARISON: 2017 FINDINGS: There are interstitial changes of the lungs. There is no demonstrated pleural abnormality. Normal size heart. Normal mediastinum and eloisa. Normal visualized pulmonary arteries. Normal visualized aortic arch and descending thoracic aorta. There are diffuse degenerative changes of the visualized thoracic spine. Normal visualized ribs, clavicles, and shoulders. There is no demonstrated abnormality of the visualized soft tissue structures of the upper abdomen. RAD/Chest PA and Lateral IMPRESSION: Chronic interstitial changes, no superimposed acute pulmonary process Electronically Signed: Artem Landry MD at 17:17 EST , Service support ,
[2021-04-16 18:24] LABS: Absolute Neutrophil Count 3.2 X10^3/uL (2.0-7.7); Basophil# 0.04 X10^3/uL; Basophil% 0.8 % (0-1); Eosinophil# 0.17 X10^3/uL; Eosinophils% 3.3 % (0-5); Hematocrit 42.9 % (40-54); Hemoglobin 14.2 g/dL (13.0-16.5); Lymphocyte % 23.4 % (19-41); Mean Corp Hgb Conc 33.1 g/dL (32-36); Mean Corpuscular Hgb 32.9 pg (27.0-32.0); Mean Corpuscular Volume 99.3 fL (80-94); Mean Platelet Vol. 9.9 fl (6.2-12.0); Monocyte# 0.54 X10^3/uL; Monocyte% 10.5 % (0-10); NRBC Flagged by Analyzer 0 % (0-5); Neutrophil # 3.17 X10^3/uL (2.7-7.7); Neutrophil % 61.8 % (47-70); Platelet Count 230 K/mm3 (150-450); RBC Distribution Width SD 47.9 fl (35.1-43.9); Red Blood Count 4.32 M/mm3 (4.6-6.2); White Blood Count 5.1 K/mm3 (4.4-11.0)
[2021-04-16 19:07] LABS: ALB/GLOB Ratio 1.1 RATIO (0.9-2.4); AST(SGOT) 18 U/L (15-37); Alanine Aminotransfer ALT/SGPT 22 U/L (16-61); Albumin, Serum 3.6 g/dL (3.2-5.0); Alkaline Phosphatase 62 U/L (45-117); Anion Gap 8 (5-15); BUN 21 mg/dL (7-18); BUN/Creat Ratio 15.4 RATIO (10-20); Calcium,Total 8.4 mg/dL (8.5-10.1); Chloride 109 mmol/L (98-107); Creatinine, Serum 1.36 mg/dL (0.70-1.30); EST Glomerular Filtration Rate 53 mL/min (>60); Est Glom Filt Rate - Afr Amer 64 mL/min (>60); Globulin 3.3 g/dL (2.2-4.2); Glucose 92 mg/dL (74-106); Magnesium 2.4 mg/dL (1.6-2.6); Potassium 4.5 mmol/L (3.5-5.1); Protein, Total 6.9 g/dL (6.4-8.2); Sodium Level 141 mmol/L (136-145); Thyroid Stim Hormone (TSH) 4.93 uIU/mL (0.358-3.74)
== END ==
PROVIDERS: PCP Family Medicine; Referring Provider Family Medicine; Visit Provider Family Medicine
DX: R06.02 Shortness of breath (principal); I48.91 Unspecified atrial fibrillation
CPT/HCPCS: 36415; 71046; 80053; 83735; 84443; 85025

== ENCOUNTER → 2021-11-19 | Outpatient (CLI) | payer MEDICARE, SELFPAY ==
[2021-11-19 16:51] LABS: Absolute Lymphocyte Count 1.51 X10^3/uL (0.83-4.51); Absolute Neutrophil Count 3.5 X10^3/uL (2.0-7.7); Basophil# 0.02 X10^3/uL; Basophil% 0.3 % (0-1); Eosinophil# 0.19 X10^3/uL; Eosinophils% 3.3 % (0-5); Hemoglobin 14.1 g/dL (13.0-16.5); Lymphocyte # 1.51 X10^3/ul (0.83-4.51); Lymphocyte % 26.1 % (19-41); Mean Corp Hgb Conc 32.8 g/dL (32-36); Mean Corpuscular Hgb 33.3 pg (27.0-32.0); Mean Corpuscular Volume 101.4 fL (80-94); Mean Platelet Vol. 10.2 fl (6.2-12.0); Monocyte# 0.54 X10^3/uL; Monocyte% 9.3 % (0-10); NRBC Flagged by Analyzer 0 % (0-5); Neutrophil # 3.51 X10^3/uL (2.7-7.7); Neutrophil % 60.8 % (47-70); Platelet Count 236 K/mm3 (150-450); RBC Distribution Width CV 13.6 % (11.6-14.6); RBC Distribution Width SD 51.2 fl (35.1-43.9); Red Blood Count 4.24 M/mm3 (4.6-6.2); White Blood Count 5.8 K/mm3 (4.4-11.0)
[2021-11-19 17:10] LABS: BNP,B-Type NATRIURETIC PEPTIDE 166.8 pg/mL (0-100)
[2021-11-19 17:19] LABS: Anion Gap 4 (5-15); BUN 17 mg/dL (7-18); BUN/Creat Ratio 14.3 RATIO (10-20); Calcium,Total 8.8 mg/dL (8.5-10.1); Chloride 111 mmol/L (98-107); Creatinine, Serum 1.19 mg/dL (0.70-1.30); EST Glomerular Filtration Rate 62 mL/min (>60); Est Glom Filt Rate - Afr Amer 75 mL/min (>60); Glucose 96 mg/dL (74-106); Potassium 4.7 mmol/L (3.5-5.1); Sodium Level 141 mmol/L (136-145); Thyroid Stim Hormone (TSH) 5.22 uIU/mL (0.358-3.74)
== END | disposition home or self-care (01) ==
LOC: LAB 15:51
PROVIDERS: PCP Family Medicine; Referring Provider Internal Medicine Cardiovascular Disease; Visit Provider Internal Medicine Cardiovascular Disease
DX: R06.09 Other forms of dyspnea (principal); I48.0 Paroxysmal atrial fibrillation
CPT/HCPCS: 36415; 80048; 83880; 84443; 85025

== ENCOUNTER → 2022-01-01 | Outpatient (CLI) | payer MEDICARE, SELFPAY ==
--- NOTE | 2022-01-01 06:10 | ECHOD_ITS ---
Reason For Study: SOB Procedure This was a 2D Doppler, Color Flow transthoracic echocardiogram. Exam performed in department. Left Ventricle Normal LV size. Left ventricular systolic function is normal. The estimated ejection fraction is 55 %. Stage 1 diastolic dysfunction. No regional wall motion abnormalities noted. Right Ventricle Normal RV size. Normal systolic function. Atria Normal left atrium. Normal right atrium. Mitral Valve Normal mitral valve. Tricuspid Valve Normal tricuspid valve. Mild tricuspid valve insufficiency. Pulmonary artery systolic pressure is 30 mmHg. Aortic Valve Trisinus/trileaflet aortic valve. Mild (1+) aortic valve insufficiency. Pulmonic Valve Normal pulmonic valve. Mild (1+) pulmonic valve insufficiency. Great Vessels Normal aortic root. The pulmonary artery is normal size. Inferior vena cava collapse with respiration. Pericardium/Pleural No pericardial effusion. MMode/2D Measurements & Calculations LVIDd: 2.8 cm IVSd: 1.2 cm Ao root diam: 3.8 cm LVIDs: 1.4 cm LVPWd: 1.1 cm RVDd: 3.0 cm FS: 51.4 % LAV(MOD-bp): 48.3 ml LVAd ap4: 28.0 cm2 LVAd ap2: 30.8 cm2 LAV(MOD-bp) Indexed: 24.9 ml/m2 LVLd ap4: 8.2 cm LVLd ap2: 8.9 cm LAV(MOD-sp2): 50.5 ml EDV(MOD-sp4): 76.9 ml EDV(MOD-sp2): 91.5 ml LAV(MOD-sp4): 45.1 ml EDV(sp4-el): 80.9 ml EDV(sp2-el): 91.1 ml LVAs ap4: 16.6 cm2 LVAs ap2: 18.4 cm2 LVLs ap4: 7.0 cm LVLs ap2: 7.7 cm ESV(MOD-sp4): 34.7 ml ESV(MOD-sp2): 40.2 ml ESV(sp4-el): 33.6 ml ESV(sp2-el): 37.3 ml EF(MOD-sp4): 54.8 % EF(MOD-sp2): 56.0 % EF(sp4-el): 58.5 % SV(MOD-sp4): 42.2 ml SV(MOD-sp2): 51.3 ml SV(sp4-el): 47.3 ml LA dimension(2D): 4.0 cm LA A4 area: 16.8 cm2 RA A4 area: 14.4 cm2 Doppler Measurements & Calculations MV E max christopher: 43.3 cm/sec Lat Peak E' Christopher: 5.2 cm/sec Med Peak E' Christopher: 6.2 cm/sec MV A max christopher: 70.0 cm/sec E/E' lat: 8.4 E/E' med: 6.9 MV E/A: 0.62 Ao V2 max: 124.1 cm/sec AI max christopher: 293.2 cm/sec LV V1 max: 75.0 cm/sec Ao max P.2 mmHg AI max P.4 mmHg LV V1 max P.3 mmHg AI dec slope: 162.3 cm/sec2 AI P1/2t: 529.0 msec PA V2 max: 81.1 cm/sec TR max christopher: 255.2 cm/sec TR max P.2 mmHg ECHO/Echo Complete Interpretation Summary Normal LV size. Left ventricular systolic function is normal. The estimated ejection fraction is 55 %. Stage 1 diastolic dysfunction. Pulmonary artery systolic pressure is 30 mmHg. Ordering Physician: Jameson Davis Referring Physician: Fernie Cadena Performed By: Lavonne Monroe RDCS
--- NOTE | 2022-01-01 18:54 | STRESSREP ---
Stress Test Report Pharmacologic myocardial perfusion stress test. 86-year-old male with a history of shortness of breath. Stress protocol: Resting KG demonstrates sinus bradycardia with a rate of 48 bpm normal intervals are noted resting blood pressure is 122/60 mmHg. 0.4 mg of regadenoson was infused per usual protocol followed by rapid intravenous saline flush injection continuous EKG monitoring was performed. The maximum heart rate attained was 75 bpm which was 55% of max impacted heart rate the maximum workload was 1 metabolic equivalent. At rest there were no ST or T wave changes noted to suggest abnormal flow reserve and at peak infusion nonspecific ST changes were noted with did not meet the criteria for ischemia. No clinical angina was noted the test was terminated due to completion of the protocol. Myocardial perfusion protocol. 11.5 mCi of technetium 99m sestamibi was injected at rest. 0.4 mg of adenosine was infused per usual protocol. At peak infusion 33.8 mCi of technetium 99m sestamibi was injected stress images were obtained stress and rest images were reconstructed in comparing the short axis vertical long and horizontal long axis. Gated images were also obtained. Perfusion SPECT analysis: Review of the stress images demonstrate normal uptake of tracer noted in all areas of the myocardium. The resting images similar demonstrate normal uptake of tracer noted in all areas of the myocardium. No areas of reversibility are noted to suggest ischemia and no previous infarct is noted. Gated SPECT analysis: The gated ejection fraction is noted to be 65%. Conclusion: Normal pharmacologic myocardial perfusion stress test. Preserved ejection fraction.
== END | disposition home or self-care (01) ==
LOC: CVS 06:09
PROVIDERS: PCP Family Medicine; Referring Provider Internal Medicine Cardiovascular Disease; Visit Provider Internal Medicine Cardiovascular Disease
DX: R06.02 Shortness of breath (principal); I48.0 Paroxysmal atrial fibrillation
CPT/HCPCS: 78452; 93017; 93306; A9500; A4216; J2785

== ENCOUNTER → 2022-01-23 | Outpatient (CLI) | payer MEDICARE, SELFPAY ==
[2022-01-23 17:39] LABS: Absolute Lymphocyte Count 1.16 X10^3/uL (0.83-4.51); Absolute Neutrophil Count 3.2 X10^3/uL (2.0-7.7); Basophil# 0.02 X10^3/uL; Basophil% 0.4 % (0-1); Eosinophil# 0.18 X10^3/uL; Eosinophils% 3.5 % (0-5); Hematocrit 39.3 % (40-54); Hemoglobin 12.8 g/dL (13.0-16.5); Lymphocyte # 1.16 X10^3/ul (0.83-4.51); Lymphocyte % 22.7 % (19-41); Mean Corp Hgb Conc 32.6 g/dL (32-36); Mean Corpuscular Hgb 33.2 pg (27.0-32.0); Mean Corpuscular Volume 101.8 fL (80-94); Monocyte# 0.52 X10^3/uL; Monocyte% 10.2 % (0-10); NRBC Flagged by Analyzer 0 % (0-5); Neutrophil # 3.21 X10^3/uL (2.7-7.7); Neutrophil % 62.8 % (47-70); Platelet Count 218 K/mm3 (150-450); RBC Distribution Width CV 13.2 % (11.6-14.6); RBC Distribution Width SD 49.5 fl (35.1-43.9); Red Blood Count 3.86 M/mm3 (4.6-6.2); White Blood Count 5.1 K/mm3 (4.4-11.0)
[2022-01-23 18:39] LABS: AST(SGOT) 14 U/L (15-37); Alanine Aminotransfer ALT/SGPT 15 U/L (16-61); Albumin, Serum 3.3 g/dL (3.2-5.0); Alkaline Phosphatase 59 U/L (45-117); Anion Gap 7 (5-15); BUN 19 mg/dL (7-18); BUN/Creat Ratio 15.2 RATIO (10-20); Calcium,Total 8.6 mg/dL (8.5-10.1); Chloride 107 mmol/L (98-107); Creatinine, Serum 1.25 mg/dL (0.70-1.30); EST Glomerular Filtration Rate 58 mL/min (>60); Est Glom Filt Rate - Afr Amer 70 mL/min (>60); Globulin 3.4 g/dL (2.2-4.2); Glucose 88 mg/dL (74-106); Magnesium 2.2 mg/dL (1.6-2.6); Potassium 4.2 mmol/L (3.5-5.1); Protein, Total 6.7 g/dL (6.4-8.2); Sodium Level 144 mmol/L (136-145); Thyroid Stim Hormone (TSH) 6.71 uIU/mL (0.358-3.74)
[2022-01-24 10:49] LABS: Vitamin B12 151 pg/mL (211-911)
[2022-01-24 10:50] LABS: Ferritin 63 ng/mL (26-388); Iron 104 ug/dL (65-175); Iron Binding Capacity,Total 328 ug/dL (250-450); PERCENT IRON SATURATION 31.7 % (15.0-55.0); T4 Free Direct 0.99 ng/dL (0.76-1.46)
[2022-01-29 09:12] LABS: Anti-Thyroglobulin AB < 1.0 IU/mL (0.0-0.9); Thyroglobulin, Serum Qt. 46.5 ng/mL (1.4-29.2); Thyroid Peroxidase AB < 8 IU/mL (0-34)
== END | disposition home or self-care (01) ==
LOC: MFPLAB 14:53
PROVIDERS: PCP Family Medicine; Referring Provider Family Medicine; Visit Provider Family Medicine
DX: D64.9 Anemia, unspecified (principal); I48.91 Unspecified atrial fibrillation; R79.89 Other specified abnormal findings of blood chemistry
CPT/HCPCS: 36415; 80053; 82607; 82728; 83540; 83550; 83735; 84432; 84439; 84443; 85025; 86376; 86800

== ENCOUNTER → 2022-01-28 | Outpatient (CLI) | payer MEDICARE, SELFPAY ==
--- NOTE | 2022-01-29 07:05 | PFTCOMP ---
COMPLETE PULMONARY FUNCTION TEST INTERPRETATION Brief HPI: Patient is an 86-year-old male, currently under the care of Dr. Cadena, who presents to [facility] for complete pulmonary function tests secondary to diagnosis of dyspnea. Respiratory therapist reports good effort and reproducible results. Interpretation: Forced expiration spirometry shows no large airways obstructive ventilatory defect with an FEV1 of 86% predicted. There is no significant bronchodilator response by strict ATS criteria. Spirograms are of good quality and plateau normally. The respiratory flow volume loop shows a normal pattern. Lung volumes by body plethysmography show a normal total lung capacity at 4.75 L, 94% predicted. All other lung volumes are within normal limits. Diffusion capacity by carbon monoxide is at the lower limit of normal at 63% predicted. The airway resistance is slightly elevated. No previous pulmonary function tests were available for review. Impression: 's pulmonary function tests are grossly within normal limits. Cannot exclude an early pulmonary vascular disease
== END | disposition home or self-care (01) ==
LOC: PSN 08:09
PROVIDERS: PCP Family Medicine; Referring Provider Family Medicine; Visit Provider Family Medicine
DX: R06.02 Shortness of breath (principal)
CPT/HCPCS: 94060; 94726; 94729

== ENCOUNTER → 2022-05-27 | Outpatient (CLI) | payer MEDICARE, SELFPAY ==
[2022-05-27 18:03] LABS: Absolute Lymphocyte Count 1.39 X10^3/uL (0.83-4.51); Absolute Neutrophil Count 4.1 X10^3/uL (2.0-7.7); Basophil# 0.03 X10^3/uL; Basophil% 0.5 % (0-1); Eosinophil# 0.17 X10^3/uL; Eosinophils% 2.7 % (0-5); Hematocrit 41.8 % (40-54); Hemoglobin 13.4 g/dL (13.0-16.5); Lymphocyte # 1.39 X10^3/ul (0.83-4.51); Lymphocyte % 22.3 % (19-41); Mean Corp Hgb Conc 32.1 g/dL (32-36); Mean Corpuscular Hgb 32.8 pg (27.0-32.0); Mean Corpuscular Volume 102.5 fL (80-94); Monocyte# 0.57 X10^3/uL; Monocyte% 9.1 % (0-10); NRBC Flagged by Analyzer 0 % (0-5); Neutrophil # 4.07 X10^3/uL (2.7-7.7); Neutrophil % 65.2 % (47-70); Platelet Count 252 K/mm3 (150-450); RBC Distribution Width SD 49.1 fl (35.1-43.9); Red Blood Count 4.08 M/mm3 (4.6-6.2); White Blood Count 6.2 K/mm3 (4.4-11.0)
[2022-05-27 18:29] LABS: Vitamin B12 477 pg/mL (211-911)
[2022-05-27 18:48] LABS: ALB/GLOB Ratio 1.1 RATIO (0.9-2.4); AST(SGOT) 16 U/L (15-37); Alanine Aminotransfer ALT/SGPT 12 U/L (16-61); Albumin, Serum 3.6 g/dL (3.2-5.0); Alkaline Phosphatase 63 U/L (45-117); Anion Gap 9 (5-15); BUN 27 mg/dL (7-18); BUN/Creat Ratio 15.4 RATIO (10-20); Calcium,Total 8.6 mg/dL (8.5-10.1); Chloride 103 mmol/L (98-107); Creatinine, Serum 1.75 mg/dL (0.70-1.30); EST Glomerular Filtration Rate 39 mL/min (>60); Est Glom Filt Rate - Afr Amer 48 mL/min (>60); Ferritin 39 ng/mL (26-388); Globulin 3.2 g/dL (2.2-4.2); Glucose 71 mg/dL (74-106); Iron 103 ug/dL (65-175); Iron Binding Capacity,Total 327 ug/dL (250-450); Magnesium 2.3 mg/dL (1.6-2.6); PERCENT IRON SATURATION 31.5 % (15.0-55.0); Potassium 4.2 mmol/L (3.5-5.1); Protein, Total 6.8 g/dL (6.4-8.2); Sodium Level 141 mmol/L (136-145); T4 Free Direct 1.17 ng/dL (0.76-1.46); Thyroid Stim Hormone (TSH) 4.35 uIU/mL (0.358-3.74)
== END | disposition home or self-care (01) ==
LOC: MFPLAB 14:23
PROVIDERS: PCP Family Medicine; Referring Provider Family Medicine; Visit Provider Family Medicine
DX: I48.91 Unspecified atrial fibrillation (principal); E03.8 Other specified hypothyroidism; E53.8 Deficiency of other specified B group vitamins; D64.9 Anemia, unspecified
CPT/HCPCS: 36415; 80053; 82607; 82728; 82746; 83540; 83550; 83735; 84439; 84443; 85025

== ENCOUNTER → 2022-06-03 | Outpatient (CLI) | payer MEDICARE, SELFPAY ==
[2022-06-03 18:04] LABS: Anion Gap 9 (5-15); BUN 27 mg/dL (7-18); BUN/Creat Ratio 17.1 RATIO (10-20); Calcium,Total 8.6 mg/dL (8.5-10.1); Chloride 103 mmol/L (98-107); Creatinine, Serum 1.58 mg/dL (0.70-1.30); EST Glomerular Filtration Rate 44 mL/min (>60); Est Glom Filt Rate - Afr Amer 54 mL/min (>60); Glucose 79 mg/dL (74-106); Potassium 3.9 mmol/L (3.5-5.1); Sodium Level 143 mmol/L (136-145)
== END | disposition home or self-care (01) ==
LOC: MFPLAB 14:23
PROVIDERS: PCP Family Medicine; Referring Provider Family Medicine; Visit Provider Family Medicine
DX: N18.9 Chronic kidney disease, unspecified (principal)
CPT/HCPCS: 36415; 80048

== ENCOUNTER → 2022-09-24 | Outpatient (CLI) | payer MEDICARE, SELFPAY ==
[2022-09-24 14:21] LABS: Bacteria 0 SEEN /hpf (None Seen); Red Blood Cells-Urine 0 SEEN /hpf (0-5); Squamous Epithelial Cells - UA 0 SEEN /hpf (0-5)
[2022-09-24 15:49] LABS: Absolute Neutrophil Count 3.6 X10^3/uL (2.0-7.7); Basophil# 0.04 X10^3/uL; Basophil% 0.7 % (0-1); Eosinophil# 0.12 X10^3/uL; Eosinophils% 2.2 % (0-5); Hematocrit 43.2 % (40-54); Hemoglobin 14.1 g/dL (13.0-16.5); Lymphocyte % 20.4 % (19-41); Mean Corp Hgb Conc 32.6 g/dL (32-36); Mean Corpuscular Hgb 33.1 pg (27.0-32.0); Mean Corpuscular Volume 101.4 fL (80-94); Mean Platelet Vol. 9.9 fl (6.2-12.0); Monocyte% 9.3 % (0-10); NRBC Flagged by Analyzer 0 % (0-5); Neutrophil # 3.62 X10^3/uL (2.7-7.7); Neutrophil % 67.2 % (47-70); Platelet Count 229 K/mm3 (150-450); RBC Distribution Width CV 13.4 % (11.6-14.6); Red Blood Count 4.26 M/mm3 (4.6-6.2); White Blood Count 5.4 K/mm3 (4.4-11.0)
[2022-09-24 16:19] LABS: Vitamin B12 1423 pg/mL (211-911); Vitamin D,25 Hydroxy 23.8 ng/mL
[2022-09-24 16:23] LABS: AST(SGOT) 13 U/L (15-37); Alanine Aminotransfer ALT/SGPT 12 U/L (16-61); Albumin, Serum 3.5 g/dL (3.2-5.0); Alkaline Phosphatase 72 U/L (45-117); Anion Gap 6 (5-15); BUN 18 mg/dL (7-18); BUN/Creat Ratio 11.2 RATIO (10-20); Calcium,Total 8.7 mg/dL (8.5-10.1); Chloride 111 mmol/L (98-107); EST Glomerular Filtration Rate 44 mL/min (>60); Est Glom Filt Rate - Afr Amer 53 mL/min (>60); Globulin 3.6 g/dL (2.2-4.2); Glucose 91 mg/dL (74-106); Magnesium 2.5 mg/dL (1.6-2.6); Potassium 4.5 mmol/L (3.5-5.1); Protein, Total 7.1 g/dL (6.4-8.2); Sodium Level 141 mmol/L (136-145); T4 Free Direct 1.12 ng/dL (0.76-1.46); Thyroid Stim Hormone (TSH) 6.27 uIU/mL (0.358-3.74)
[2022-09-24 16:26] LABS: Color, Urine Yellow (Yellow); Glucose, Dipstick Normal (Normal); Ketone-Dipstick Negative (Negative); Leukocyte Esterase-Dipstick Negative /ul (Negative); Nitrite-Dipstick Negative (Negative); Occult Blood-Urine Negative /ul (Negative); Protein-Dipstick Negative (Negative); Specific Gravity, Urine 1.015 (1.002-1.030); Urine Bilirubin Dipstick Negative (Negative); Urine Clarity Clear (Clear); Urine Urobilinogen Normal (Normal)
[2022-09-24 16:28] LABS: Protein, Urine (Random) 16.2 mg/dL (<11.9); Protein:Creat Ratio 143 mg/g CRE (0-200)
[2022-09-24 16:40] LABS: Mucous, Urine RARE /hpf (<or=2+)
[2022-09-24 16:41] LABS: Hyaline Cast 0-5 SEEN /lpf (0-5); White Blood Cells 0-5 SEEN /hpf (0-5)
[2022-09-25 08:50] LABS: PTHIN 262.9 pg/mL (18.4-80.1)
== END | disposition home or self-care (01) ==
LOC: MFPLAB 14:13
PROVIDERS: PCP Family Medicine; Visit Provider Family Medicine
DX: I48.91 Unspecified atrial fibrillation (principal); N18.30 Chronic kidney disease, stage 3 unspecified; E53.8 Deficiency of other specified B group vitamins; E03.8 Other specified hypothyroidism
CPT/HCPCS: 80053; 81001; 82306; 82570; 82607; 83735; 83970; 84100; 84156; 84439; 84443; 85025

== ENCOUNTER → 2022-09-29 | Outpatient (CLI) | payer MEDICARE, SELFPAY ==
--- NOTE | 2022-09-29 10:08 | RAD_ITS ---
STUDY: X-RAY - ESOPHAGUS (BARIUM SWALLOW) WITH FLUOROSCOPY REASON FOR EXAM: Male, 87 years old. GLOBUS SENSATION TECHNIQUE: 14 view(s) of the esophagus were obtained following swallowing of barium. FLUOROSCOPY TIME (if supplied): (36 seconds) minutes/seconds COMPARISON: None. FINDINGS: There is no demonstrated esophageal foreign body. There is no demonstrated stricture or mucosal abnormality. Normal gastroesophageal junction, without a demonstrated hiatal hernia. The patient ingested a 12 mm tablet at bedtime without any difficulty. There is atherosclerotic calcification of the aortic arch with tortuosity of the descending aorta. Normal visualized pulmonary parenchyma. There are diffuse degenerative changes of the visualized thoracic spine. RAD/Esophagus Dual Contrast IMPRESSION: Normal plain film x-ray examination (barium swallow) of the esophagus. Electronically Signed: Kirk Oliver MD at 15:44 EDT ,
== END | disposition home or self-care (01) ==
PROVIDERS: PCP Family Medicine; Referring Provider Family Medicine; Visit Provider Family Medicine
DX: R09.89 Other specified symptoms and signs involving the circulatory and respiratory systems (principal)
CPT/HCPCS: 74221

== ENCOUNTER → 2023-05-21 | Outpatient (CLI) | payer MEDICARE, SELFPAY ==
[2023-05-21 13:07] LABS: Anion Gap 3 (5-15); BUN 18 mg/dL (7-18); BUN/Creat Ratio 10.3 RATIO (10-20); Calcium,Total 9.3 mg/dL (8.5-10.1); Chloride 108 mmol/L (98-107); Creatinine, Serum 1.74 mg/dL (0.70-1.30); EST Glomerular Filtration Rate 40 mL/min (>60); Est Glom Filt Rate - Afr Amer 48 mL/min (>60); Glucose 84 mg/dL (74-106); Potassium 4.4 mmol/L (3.5-5.1); Sodium Level 140 mmol/L (136-145)
== END | disposition home or self-care (01) ==
LOC: LAB 11:57
PROVIDERS: PCP Family Medicine; Referring Provider Nurse Practitioner Family; Visit Provider Nurse Practitioner Family
DX: I10 Essential (primary) hypertension (principal); I48.0 Paroxysmal atrial fibrillation
CPT/HCPCS: 36415; 80048